=== PATIENT | female | born 1990 | race Caucasian/White ===

== ENCOUNTER → 2024-03-21 09:55 | Outpatient (REF) | payer BC, SELFPAY ==
--- NOTE | 2024-03-21 10:44 | PN.DIAED06 ---
Meal Plan - Gestational
- Breakfast
Gestational Diabetes Meal Plan Name: 2000 calories
Breakfast - Total Carbohydrate (grams): 45
Breakfast - Starch Carbohydrate: 2
Breakfast - Fruit Carbohydrate: 0
Breakfast - Milk Carbohydrate: 1
Breakfast - Nonstarchy Vegetables: Yes
Breakfast - Meat/Protein: 1
Breakfast - Fat: 2
- Morning Snack
Morning Snack - Total Carbohydrate (grams): 30
Morning Snack - Starch Carbohydrate: 1
Morning Snack - Fruit Carbohydrate: 0
Morning Snack - Milk Carbohydrate: 1
Morning Snack - Nonstarchy Vegetables: Yes
Morning Snack - Meat/Protein: 0
Morning Snack - Fat: 0
- Lunch
Lunch - Total Carbohydrate (grams): 45
Lunch - Starch Carbohydrate: 1
Lunch - Fruit Carbohydrate: 1
Lunch - Milk Carbohydrate: 1
Lunch - Nonstarchy Vegetables: Yes
Lunch - Meat/Protein: 2
Lunch - Fat: 2
- Afternoon Snack
Afternoon Snack - Total Carbohydrate (grams): 30
Afternoon Snack - Starch Carbohydrate: 1
Afternoon Snack - Fruit Carbohydrate: 1
Afternoon Snack - Milk Carbohydrate: 0
Afternoon Snack - Nonstarchy Vegetables: Yes
Afternoon Snack - Meat/Protein: 1
Afternoon Snack - Fat: 0
- Dinner
Dinner - Total Carbohydrate (grams): 45
Dinner - Starch Carbohydrate: 2
Dinner - Fruit Carbohydrate: 1
Dinner - Milk Carbohydrate: 0
Dinner - Nonstarchy Vegetables: Yes
Dinner - Meat/Protein: 2
Dinner - Fat: 2
- Evening Snack
Evening Snack - Total Carbohydrate (grams): 45
Evening Snack - Starch Carbohydrate: 1
Evening Snack - Fruit Carbohydrate: 1
Evening Snack - Milk Carbohydrate: 1
Evening Snack - Nonstarchy Vegetables: Yes
Evening Snack - Meat/Protein: 1
Evening Snack - Fat: 0
--- NOTE | 2024-03-21 15:03 | PN.DE ---
Diabetes Education
- -
03/21/2024: Gestational Diabetes Consult
Met with Lakisha Gan and her today, currently at 30 weeks of gestation, here today for medical nutrition therapy.
Explained glucose metabolism in body and what occurs during to cause increase blood sugar. Discussed importance of keeping BS well controlled to avoid complications to the baby during and after (macrosomia, hypoglycemia).
Explained to Stone that she is at increased risk of developing T2DM in the future. She brought with her a OneTouch glucose monitor to the visit. Reviewed proper testing technique, testing sites and testing pattern. She is aware to test FBS and 2
hr pp each meal. Expected results for FBS <95 mg/dl and 2 hr pp <120 mg/dl. Noted for good return demonstration with a blood sugar of 81mg/dl 2 hours after breakfast. Log sheet provided for her to record results, she will send a 4-day meal log with
all her FBG and 2hr Post prandial glucose numbers to this office for review. In addition, she will send all her glucose readings to Kaylee at [facility] every Sunday.
Discussed macronutrients, Stone is 5'7' 135lbs, provided a 2000 saroj GDM meal plan, she has a good understanding of healthy nutrition and has been eating healthy most of her life and more so since finding out that she has GDM with this as
well.
Discussed physical activity, states she is currently walking a few days during the week. Discussed physical activity and importance of staying active during her . Encouraged her to increase her exercise days to daily as it will help her
maintain a healthy weight, lower her blood sugars and will increase insulin sensitivity.
She was encouraged to reach out should she require insulin.
== END ==
LOC: DES 09:55
PROVIDERS: ATTENDING PHYSICIAN Obstetrics & Gynecology
DX: O24.419 Gestational diabetes mellitus in pregnancy, unspecified control (principal)
CPT/HCPCS: 99078

== ENCOUNTER → 2024-03-27 06:57 | Outpatient (REF) | payer BC, SELFPAY | LOC: PNTC 06:57 | PROVIDERS: ATTENDING PHYSICIAN Obstetrics & Gynecology | DX: O24.419 Gestational diabetes mellitus in pregnancy, unspecified control (principal) | CPT/HCPCS: 76816 ==

== ENCOUNTER 2024-03-29 09:57 | Observation (INO) | payer BC, SELFPAY ==
[2024-03-29 10:05] VITALS: BP 97/50; BMI 23.5
[2024-03-29 10:49] LABS: Hematocrit 33.9 % (37.0-47.0); Hemoglobin 11.6 g/dL (12.0-16.0); Mean Corp Hgb Conc. 34.2 g/dL (33.0-37.0); Mean Corpuscular Volume 90.6 fL (81.0-99.0); Mean Platelet Volume 10.8 fL (7.4-10.4); Platelet Count 151 10^3/uL (130-400); Red Blood Cell Count 3.74 10^6/uL (4.20-5.40); Red Cell Dist. Width 12.3 % (11.5-14.5); White Blood Cell Count 10.4 10^3/uL (4.8-10.8)
[2024-03-29 10:57] LABS: INR 0.95
[2024-03-29 10:58] LABS: APTT 29.8 Sec (23.4-35.0); Fibrinogen 483 MG/DL (199-459)
== END 2024-03-29 12:15 | disposition home or self-care (01) ==
LOC: LDRP 09:57
PROVIDERS: ADMITTING PHYSICIAN Student in an Organized Health Care Education/Training Program
DX: R10.9 Unspecified abdominal pain (principal); Z3A.31 31 weeks gestation of pregnancy; W01.198A Fall on same level from slipping, tripping and stumbling with subsequent striking against other object, initial encounter; Y93.89 Activity, other specified; Y92.009 Unspecified place in unspecified non-institutional (private) residence as the place of occurrence of the external cause; O24.410 Gestational diabetes mellitus in pregnancy, diet controlled
CPT/HCPCS: 59025; 85027; 85384; 85460; 85610; 85730; G0378

== ENCOUNTER 2024-06-02 19:14 | Inpatient (IN) | payer OTHER, SELFPAY ==
[2024-06-02 19:31] VITALS: BMI 23.5
[2024-06-02 20:15] LABS: Glucose - Point of Care 93 mg/dl (70-99)
[2024-06-02 20:16] LABS: % Basophils 0.2 % (0-2); % Eosinophils 0.6 % (0-6); % Immature Granulocytes 0.5 % (0-0.5); % Monocytes 6.3 % (1.7-9.3); % Neutrophils 75.4 % (42.2-75.2); Absolute Eosinophils 0.1 10^3/uL (0-0.7); Absolute Immature Granulocytes 0.1 10^3/uL (0-0.05); Absolute Lymphocytes 1.7 10^3/uL (1.2-3.4); Absolute Monocytes 0.6 10^3/uL (0.1-0.6); Absolute Neutrophils 7.6 10^3/uL (1.4-6.5); Hematocrit 34.1 % (37.0-47.0); Hemoglobin 11.7 g/dL (12.0-16.0); Mean Corp Hgb Conc. 34.3 g/dL (33.0-37.0); Mean Corpuscular Hgb 31.7 pg (27.0-31.0); Mean Corpuscular Volume 92.4 fL (81.0-99.0); Mean Platelet Volume 11.9 fL (7.4-10.4); Nucleated Red Blood Cells % 0 %; Platelet Count 116 10^3/uL (130-400); Red Blood Cell Count 3.69 10^6/uL (4.20-5.40); Red Cell Dist. Width 12.8 % (11.5-14.5); White Blood Cell Count 10.1 10^3/uL (4.8-10.8)
[2024-06-02] MEDS: CYTOTEC 25 MICROGRAM VAG (22:15)
[2024-06-02 22:47] VITALS: BP 116/68
[2024-06-03] LABS: Glucose - Point of Care 83 mg/dl (70-99)
[2024-06-03] MEDS: CYTOTEC 50 MICROGRAM PO ×2 (02:30→06:54)
[2024-06-03 04:03] LABS: Glucose - Point of Care 90 mg/dl (70-99)
[2024-06-03] MEDS: LR 1000 IV ×3 (06:34→18:55)
[2024-06-03 08:07] LABS: Glucose - Point of Care 77 mg/dl (70-99)
[2024-06-03] MEDS: PENICILLIN 110 UNITS IV (10:40)
[2024-06-03 12:33] LABS: Glucose - Point of Care 92 mg/dl (70-99)
[2024-06-03] MEDS: PITOCIN 30 UNITS/NSS 500 ML IV (13:07)
[2024-06-03 14:28] LABS: Hematocrit 38.6 % (37.0-47.0); Hemoglobin 12.9 g/dL (12.0-16.0); Mean Corp Hgb Conc. 33.4 g/dL (33.0-37.0); Mean Corpuscular Hgb 31.3 pg (27.0-31.0); Mean Corpuscular Volume 93.7 fL (81.0-99.0); Mean Platelet Volume 12.3 fL (7.4-10.4); Platelet Count 122 10^3/uL (130-400); Red Blood Cell Count 4.12 10^6/uL (4.20-5.40); Red Cell Dist. Width 13.1 % (11.5-14.5); White Blood Cell Count 11.9 10^3/uL (4.8-10.8)
[2024-06-03] MEDS: PENICILLIN 55 UNITS IV ×2 (15:10→19:08)
[2024-06-03] MEDS: CYTOTEC PO ×2 (15:25)
[2024-06-03] MEDS: SUBLIMAZE 100 MCG EPIDURAL (15:43)
[2024-06-03] MEDS: FENTANYL/BUPIVACAINE 100 EPIDURAL (15:44)
[2024-06-03 16:23] LABS: Glucose - Point of Care 87 mg/dl (70-99)
[2024-06-03 19:23] LABS: Glucose - Point of Care 87 mg/dl (70-99)
[2024-06-04] MEDS: MOTRIN 600 MG PO ×2 (00:52→17:52)
[2024-06-04 05:00] LABS: Hematocrit 33.3 % (37.0-47.0); Hemoglobin 11.6 g/dL (12.0-16.0)
[2024-06-04] MEDS: TYLENOL 650 MG PO ×2 (10:22→17:52)
[2024-06-04] MEDS: PRENATAL PLUS 1 TABLET PO (10:24)
[2024-06-04 11:27] LABS: Platelet Count 103 10^3/uL (130-400)
[2024-06-05] MEDS: TYLENOL 650 MG PO (01:12)
[2024-06-05] MEDS: MOTRIN 600 MG PO ×2 (01:12→08:00)
[2024-06-06 15:52] LABS: Syphilis/T. pallidum Ab Reflex Negative (Negative)
== END 2024-06-05 12:35 | disposition home or self-care (01) | DRG 768 ==
LOC: LDRP 19:14
PROVIDERS: Student in an Organized Health Care Education/Training Program; ADMITTING PHYSICIAN Obstetrics & Gynecology
PROC: 3E033VJ Introduction of Other Hormone into Peripheral Vein, Percutaneous Approach (ICD-10-PCS; 2024-06-02)
PROC: 3E0P7VZ Introduction of Hormone into Female Reproductive, Via Natural or Artificial Opening (ICD-10-PCS; 2024-06-02)
PROC: 0UQC7ZZ Repair Cervix, Via Natural or Artificial Opening (ICD-10-PCS; 2024-06-03)
PROC: 10E0XZZ Delivery of Products of Conception, External Approach (ICD-10-PCS; 2024-06-03)
PROC: 0HQ9XZZ Repair Perineum Skin, External Approach (ICD-10-PCS; 2024-06-03)
PROC: 0UQMXZZ Repair Vulva, External Approach (ICD-10-PCS; 2024-06-03)
PROC: 10907ZC Drainage of Amniotic Fluid, Therapeutic from Products of Conception, Via Natural or Artificial Opening (ICD-10-PCS; 2024-06-03)
DX: O24.420 Gestational diabetes mellitus in childbirth, diet controlled (principal); Z37.0 Single live birth; O99.12 Other diseases of the blood and blood-forming organs and certain disorders involving the immune mechanism complicating childbirth; O71.3 Obstetric laceration of cervix; O48.0 Post-term pregnancy; O99.824 Streptococcus B carrier state complicating childbirth; Z3A.40 40 weeks gestation of pregnancy; D69.6 Thrombocytopenia, unspecified; O70.0 First degree perineal laceration during delivery; O76 Abnormality in fetal heart rate and rhythm complicating labor and delivery
CPT/HCPCS: 36415; 82962; 85014; 85018; 85025; 85027; 85049; 86780; 86850; 86900; 86901

== ENCOUNTER → 2024-08-28 08:18 | Outpatient (REF) | payer OTHER, SELFPAY | LOC: WDC 08:18 | PROVIDERS: ATTENDING PHYSICIAN Obstetrics & Gynecology | DX: N63.10 Unspecified lump in the right breast, unspecified quadrant (principal); N63.41 Unspecified lump in right breast, subareolar | CPT/HCPCS: 76642 ==